=== PATIENT | female | born 1990 | race African-American/Black ===

== ENCOUNTER 2017-08-21 08:24 | Emergency (ER) | payer SELFPAY ==
[~2017-08-21] VITALS: Ht 177.8 cm; Wt 80.0 kg
[2017-08-21 08:27] VITALS: BP 114/66; PULSE 61; RESP 16; TEMP 97.9; O2SAT 100
--- NOTE | 2017-08-21 09:09 | PD ---
HPI Chief Complaint: Medical Clearance Time Seen by Provider: 08:55 Travel History International Travel<30 days: No Contact w/Intl Traveler<30days: No Traveled to known affect area: No History of Present Illness HPI 27-year-old female presents to emergency department with request of a "general checkup". States that she is concerned because one breast has been larger than the other and has a clear discharge from her nipples. States her left breast feels flat and her right breast has a knot in the upper portion. Patient is also concerned about a yeast infection because she has a white vaginal discharge with itching. Patient also wants STD check. Patient has had 2 partners in the last month, people that she knows apparently. Her last menstrual period was the first of last month and she has not had a period this month. Patient denies fever, chills, abdominal pain, chest pain, shortness of breath. She does not believe she is . States she does use protection with intercourse. PFSH Past Medical History Medical History: Denies Significant Hx Diminished Hearing: No Immunizations Current: No Tetanus Vaccination: Unknown Influenza Vaccination: No ?: Not LMP: 07/03/17 Past Surgical History Surgical History: No Previous Surgery Social History Alcohol Use: Yes Tobacco Use: No Substance Use: Yes (MARIJUANA ) Allergies-Medications (Allergen,Severity, Reaction): Coded Allergies: No Known Allergies (Unverified , 08/21/17) Reported Meds & Prescriptions Reported Meds & Active Scripts Active Fluconazole 150 Mg Tab 150 Mg PO ONCE Review of Systems Except as stated in HPI: all other systems reviewed are Neg Physical Exam Narrative GENERAL: Well-developed well-nourished in no apparent distress. Makeup done. SKIN: Focused skin assessment warm/dry. HEAD: Atraumatic. Normocephalic. EYES: Pupils equal and round. No scleral icterus. No injection or drainage. ENT: No nasal bleeding or discharge. Mucous membranes pink and moist. NECK: Trachea midline. No JVD. No lymphadenopathy CARDIOVASCULAR: Regular rate and rhythm. No murmur appreciated. RESPIRATORY: No accessory muscle use. Clear to auscultation. Breath sounds equal bilaterally. Breast exam- no dimpling. No nipple discharge. Right breast slightly larger than left. Breast exam multiple mobile nodules in the right breast. GASTROINTESTINAL: Abdomen soft, non-tender, nondistended. Hepatic and splenic margins not palpable. MUSCULOSKELETAL: No obvious deformities. No clubbing. No cyanosis. No edema. GENITOURINARY: Normal external genitalia without lesions or erythema. Vaginal vault without blood. Cervical os was closed without drainage. No cervical motion tenderness. Uterus nontender and nonenlarged. Bilateral adnexa nontender without masses. White to greenish vaginal discharge NEUROLOGICAL: Awake and alert. No obvious cranial nerve deficits. Motor grossly within normal limits. Normal speech. PSYCHIATRIC: Appropriate mood and affect; insight and judgment normal. Data Data Last Documented VS Vital Signs Date Time Temp Pulse Resp B/P (MAP) Pulse Ox O2 Delivery O2 Flow Rate FiO2 08/21/17 11:36 08/21/17 08:27 97.9 61 16 100 Room Air Orders Orders Gc And Chlamydia Pcr (08/21/17 09:09) Urinalysis - C+S If Indicated (08/21/17 09:09) Ed Urine Pregnancytest Poc (08/21/17 09:09) Wet Prep Profile (08/21/17 09:21) Azithromycin Powd Pack (Zithromax Powd P (08/21/17 10:45) Ceftriaxone Inj (Rocephin Inj) (08/21/17 10:45) Ed Discharge Order (08/21/17 11:12) Labs Laboratory Tests Test 08/21/17 09:15 08/21/17 10:15 Urine Color YELLOW Urine Turbidity CLEAR Urine pH 5.5 Urine Specific [place] 1.025 Urine Protein 30 mg/dL Urine Glucose (UA) NEG mg/dL Urine Ketones NEG mg/dL Urine Occult Blood NEG Urine Nitrite NEG Urine Bilirubin NEG Urine Urobilinogen LESS THAN 2.0 MG/DL Urine Leukocyte Esterase SMALL Urine RBC 2 /hpf Urine WBC 5 /hpf Urine Squamous Epithelial Cells 4 /hpf Urine Hyaline Casts 1 /lpf Urine Mucus FEW /lpf Microscopic Urinalysis Comment CULT NOT INDICATED Clue Cells (Wet Prep) NONE SEEN Vaginal Trichomonas (Wet Prep) NONE SEEN Vaginal Yeast (Wet Prep) NONE SEEN Chlamydia trachomatis DNA (PCR) NOT DETECTED Neisseria gonorrhoeae DNA (PCR) DETECTED MDM Medical Decision Making Medical Screen Exam Complete: Yes Emergency Medical Condition: Yes Differential Diagnosis Chlamydia versus gonorrhea versus actual vaginosis versus vaginal candidiasis Narrative Course 27-year-old female presents to emergency department with request of a "general checkup". States that she is concerned because one breast has been larger than the other and has a clear discharge from her nipples. States her left breast feels flat and her right breast has a knot in the upper portion. Patient is also concerned about a yeast infection because she has a white discharge with itching. Patient also wants STD check. Patient has had 2 partners, people that she knows apparently. Her last menstrual period was the first of last month and she has not had a period this month. Patient denies fever, chills, abdominal pain, chest pain, shortness of breath. Vital signs stable Physical exam- performed with insurance salesperson in the room. Breast exam - no cervical meningeal motion tenderness. Vaginal discharge. Patient treated for GC chlamydia in the emergency department. Discharged home with fluconazole by mouth for possible development of vaginal candidiasis Patient strongly advised to find primary care physician is coming to the emergency department is inappropriate for a "generalized checkup". Patient educated on safe sex practices. Diagnosis Primary Impression: Urethritis Additional Impression: Breast lump Referrals: [facility] Additional Instructions: Follow-up with [facility] within 1 week. All use protection when having sex Follow-up with the primary care physician within one week regarding her breasts. Scripts Fluconazole (Fluconazole) 150 Mg Tab 150 MG PO ONCE for Infection, #1 TAB 0 Refills Prov: Unique Us MD 08/21/17 Disposition: 01 DISCHARGE HOME Condition: Stable Monika Mims Aug 21, 2017 09:09
[2017-08-21 09:38] LABS: BLOOD, URINE NEG (NEG); GLUCOSE,URINE NEG (NEG); HYALINE CAST, URINE 1 /lpf (RARE); KETONE, URINE NEG (NEG); MUCUS URINE FEW /lpf (OCC); NITRITE,URINE NEG (NEG); PH, URINE 5.5 (5.0-8.5); SQUAMOUS EPITHELIAL CELL URINE 4 /hpf (0-5); URINE COLOR YELLOW (YELLW/STRAW)
[2017-08-21 09:40] LABS: COMMENT (UR) CULT NOT INDICATED; CULTURE IF INDICATED CULT NOT INDICATED
[2017-08-21] MEDS ORDERED: AZITHROMYCIN PWD FOR SUSP 1 GM PACKET PO ONE (10:45)
[2017-08-21] MEDS ORDERED: cefTRIAXone 250 MG VIAL IM ONE (10:45)
[2017-08-21] MEDS ORDERED: FLUC150T PO (11:07)
[2017-08-21 12:44] LABS: CHLAMYDIA PCR NOT DETECTED (NOT DETECT); NEISSERIA PCR DETECTED (NOT DETECT)
== END 2017-08-21 11:38 | disposition home or self-care (01) ==
LOC: NEPD 08:24
DX: N34.2 Other urethritis (principal); N63.0 Unspecified lump in unspecified breast; N89.8 Other specified noninflammatory disorders of vagina
CPT/HCPCS: 81001; 84703; 87210; 87491; 87591; 96372; 99284; J0696